=== PATIENT | female | born 1980 | race Caucasian/White ===

== ENCOUNTER → 2020-08-08 | Outpatient (CLI) | payer OTHER ==
[2020-08-08 16:15] VITALS: BP 128/82; PULSE 105; RESP 18; TEMP 98.3; BMI 41.4
--- NOTE | 2020-08-08 16:44 | P.HPBAR ---
Bariatric H&P - History & Physicial H&P Date: 08/08/20 History & Physicial: Visit/CC: initial visit Patient initial contact: Initial weight: Initial weight in pounds: Height: 5 ft 7.5 in Initial BMI: Last weight: Current weight: 121.744 kg Current weight in pounds: 268.40 Current BMI: 41.4 Cecil body weight (based on NIH guidelines): 62.369 kg Excess body weight loss: The patient is a 40 year-old F who presents for Bariatric Assessment. DATE OF SERVICE: 08/08/2020 REASON FOR CONSULTATION: Panniculitis. HISTORY OF PRESENT ILLNESS: Elaine Estrada is a 18-year-old female who comes with lifelong morbid obesity. She has 4 children. She has moderate size pannus for over 10 years. She reports back pain with osteoarthritis of the back. She has redness and cellulitis of the skin from her pannus. She has not seen a spare person or had prescription treatment. Her symptoms are worse with hot and warm weather from panniculitis. She reports trouble with grooming as a result of her pannus. She has recent weight loss. She is looking into panniculitis. She presents first time in consultation for panniculitis. At height of 5 feet 7.5 inches, her ideal body weight is 158 pounds. She comes in 268 pounds. Her body mass index is 41.4 She is 110 pounds overweight. PAST MEDICAL HISTORY: 1. Morbid obesity due to excess calories 2. Body mass index of 41.4, initial 3. Glaucoma 4. Diabetes type II, non-insulin dependent 5. Gastoesophageal reflux disease. 6. Hypertension. 7. Osteoarthritis of the lower back 8. Panniculitis PAST SURGICAL HISTORY: 1. Tubal ligation 2. Uterine Ablation HOME MEDICATIONS: Home Medications Medication Instructions Recorded Confirmed Cholecalciferol [Vitamin D3 (25 25 mcg PO DAILY 08/08/20 08/08/20 Mcg = 1000 Iu)] Hydrochlorothiazide 25 mg PO DAILY 08/08/20 08/08/20 [hydroCHLOROthiazide] Latanoprost [Xelpros] 1 drop BOTH EYES HS 08/08/20 08/08/20 Omeprazole [PriLOSEC] 20 mg PO AC-BRKFST PRN 08/08/20 08/08/20 metFORMIN HCL ER [Glucophage Xr] 500 mg PO BID 08/08/20 08/08/20 ALLERGIES: Allergies Allergy/AdvReac Type Severity Reaction Status Date / Time No Known Allergies Allergy Verified 08/08/20 16:15 SOCIAL HISTORY: Denies past tobacco use. FAMILY HISTORY: No family history of ulcerative colitis disease or Crohn's disease. Family history of morbid obesity. No lupus in the family. No reports of stomach or esophageal cancer. REVIEW OF ORGAN SYSTEMS: CONSTITUTIONAL: At height of 5 feet 7.5 inches, her ideal body weight is 158 pounds. She comes in 268 pounds. Her body mass index is 41.4 She is 110 pounds overweight. HEENT: Denies any active troubles with hearing. Has troubles with vision. ENDOCRINE: Has diabetes. No hypothyroidism. CARDIOVASCULAR: Denies past reports of palpitations or heart attacks or chest pain. Has hypertension. RESPIRATORY: Has daytime somnolence. Has asthma. GASTROINTESTINAL: Denies any bright red blood per rectum. No diarrhea. No constipation. Has gastroesophageal reflux disease. GENITOURINARY: Has bladder urgency. No recent blood in urine MUSCULOSKELETAL: Has lower back pain and joint pain. Has osteoarthritis of the knees. NEURO: No headaches. No seizure disorders. PSYCH: Denies depression. No suicidal ideation. RHEUMATOLOGIC: No lupus. No rheumatoid arthritis. HEMATOLOGIC: Denies any abnormal bleeding or bruising. SKIN: No rash. No skin cancer. PHYSICAL EXAM: VITAL SIGNS: Height 5 foot 7.5 inches, weight 268 pounds. BMI 41.4 Vital Signs Temp 98.3 F 08/08/20 16:00 Pulse 105 H 08/08/20 16:00 Resp 18 08/08/20 16:00 BP 128/82 08/08/20 16:00 Pulse Ox GENERAL: Well-developed in no acute distress. HEENT: No scleral icterus. Extraocular movements grossly intact. Hears conversational speech. No nasal drainage. NECK: Supple without lymphadenopathy. CHEST: Nonlabored respirations with equal bilateral excursions. CARDIOVASCULAR: Tachycardic. Distal 2+ pulses. ABDOMEN: Obese, soft, nontender, nondistended. 20+ pound pannus. Over 8-cm of pannus over pubis. Grade IV panniculus MUSCULOSKELETAL: No clubbing, cyanosis. Gross strength within normal limits NEURO: No focal or lateralizing signs. Cranial nerves 2 through 12 grossly withi n normal limits. PSYCH: Appropriate affect. Alert and oriented to person, place and time. SKIN: Good skin turgor. Well perfused. ASSESSMENT: 1. Morbid obesity due to excess calories 2. Body mass index of 41.4, initial 3. Glaucoma 4. Diabetes type II, non-insulin dependent 5. Gastoesophageal reflux disease. 6. Hypertension. 7. Osteoarthritis of the lower back 8. Panniculitis PLAN: 1. Recommend assessment for panniculectomy. 2. Recommend dermatology assessment. 3. Recommend bariatric metabolic for correction of macro and micro nutrients. Past Medical History Past Medical History: Eye Disorder, GERD/Reflux, Hypertension Additional Past Medical History / Comment(s): pre-diabetic. glaucoma. History of Any Multi-Drug Resistant Organisms: None Reported Past Surgical History: Tubal Ligation, Uterine Ablation Additional Past Surgical History / Comment(s): 2019 - laser sx bilateral eyes. 2017 - EGD. Past Anesthesia/Blood Transfusion Reactions: No Reported Reaction Past Psychological History: No Psychological Hx Reported Smoking Status: Never smoker Past Alcohol Use History: Rare Past Drug Use History: None Reported Surgical - Exam Vital Signs Temp Pulse Resp BP 98.3 F 105 H 18 128/82 08/08/20 16:00 08/08/20 16:00 08/08/20 16:00 08/08/20 16:00 Bariatric Checklist Checklist: Plan: Checklist: EGD: 1. Hiatal hernia: 2. H. Pylori: HgbA1c: Vitamin D: Smoking: Primary care physician referral: Dr Potter ([facility] [address]) Psychiatry clearance: Cardiology clearance: Sleep study: Diet journal: VTE risk score: VTE risk level: Rehab needs at discharge:
== END ==
LOC: BARWHC3 15:23
PROVIDERS: ATTEND Surgery Plastic and Reconstructive Surgery
DX: E66.01 Morbid (severe) obesity due to excess calories (principal); E11.9 Type 2 diabetes mellitus without complications; H40.9 Unspecified glaucoma; K21.9 Gastro-esophageal reflux disease without esophagitis; I10 Essential (primary) hypertension; M47.9 Spondylosis, unspecified; M79.3 Panniculitis, unspecified; Z79.84 Long term (current) use of oral hypoglycemic drugs; Z79.899 Other long term (current) drug therapy; Z68.41 Body mass index [BMI] 40.0-44.9, adult
CPT/HCPCS: 99203

== ENCOUNTER → 2021-08-10 | Outpatient (CLI) | payer OTHER ==
[2021-08-10 17:00] LABS: % Iron Saturation 14.02 (12.00-45.00); Ferritin 46.9 ng/mL (10.0-291.0)
== END | disposition home or self-care (01) ==
LOC: LABWHC1 10:58
PROVIDERS: ATTEND Surgery
DX: Z01.818 Encounter for other preprocedural examination (principal); E66.01 Morbid (severe) obesity due to excess calories; E56.9 Vitamin deficiency, unspecified
CPT/HCPCS: 36415; 82607; 82728; 82746; 83540; 83550; 84466

== ENCOUNTER → 2022-02-12 | Outpatient (CLI) | payer OTHER ==
[2022-02-12 18:17] LABS: Basophils # (A) 0.06 X 10*3/uL (0.00-0.10); Basophils % (A) 0.8 %; Eosinophils # (A) 0.14 X 10*3/uL (0.04-0.35); Eosinophils % (A) 1.8 %; HCT 42.3 % (37.2-46.3); HGB 13.4 g/dL (12.0-15.0); Immature Grans, Automated 0.3 %; Lymphocytes # (A) 1.36 X 10*3/uL (0.90-5.00); Lymphocytes % (A) 17.9 %; MCH 27.7 pg (27.0-32.0); MCHC 31.7 g/dL (32.0-37.0); MCV 87.6 fL (80.0-97.0); Mean Platelet Volume 12.7 fL (9.5-12.2); Monocytes # (A) 0.66 X 10*3/uL (0.20-1.00); Monocytes % (A) 8.7 %; NRBC Per 100 WBC 0 /100 WBCS (0.0-0.0); Neutrophils # (A) 5.34 X 10*3/uL (1.80-7.70); Neutrophils % (A) 70.5 %; Platelet Count 188 X 10*3/uL (140-440); RBC 4.83 X 10*6/uL (4.10-5.20); RDW 13.2 % (11.5-14.5); WBC 7.58 X 10*3/uL (4.50-10.00)
[2022-02-12 19:28] LABS: % Iron Saturation 28.7 (12.00-45.00); African American GFR (CKD) 109.6 (60.0-200.0); Albumin 4.3 g/dL (3.8-4.9); Albumin/Globulin Ratio 1.63 (1.60-3.17); Anion Gap 16.8 mmol/L (10.00-18.00); BUN/Creat Ratio 16.36 Ratio (12.00-20.00); Blood Urea Nitrogen 12.6 mg/dL (9.0-27.0); Calcium 9.8 mg/dL (8.7-10.3); Carbon Dioxide 20.5 mmol/L (20.0-27.5); Globulin 2.6 g/dL (1.6-3.3); Non-African American GFR(CKD) 94.6 (60.0-200.0); Potassium 4.4 mmol/L (3.5-5.5); Total Bilirubin 0.6 mg/dL (0.30-1.20); Total Protein 6.9 g/dL (6.2-8.2)
== END | disposition home or self-care (01) ==
LOC: LABWHC1 13:01
PROVIDERS: ATTEND Surgery
DX: E56.9 Vitamin deficiency, unspecified (principal); K90.9 Intestinal malabsorption, unspecified
CPT/HCPCS: 36415; 80053; 82306; 82525; 82607; 82746; 83540; 83550; 84466; 84590; 84630; 85025